=== PATIENT | female | born 1995 | race Asian ===

== ENCOUNTER 2018-05-31 00:14 | Emergency (ER) | payer OTHER ==
[~2018-05-31] VITALS: Ht 157.5 cm; Wt 99.8 kg
[2018-05-31 01:15] VITALS: BP 150/98
== END 2018-05-31 01:50 | disposition left against medical advice (07) ==
LOC: ER 00:17
DX: R07.9 Chest pain, unspecified (principal); Z53.21 Procedure and treatment not carried out due to patient leaving prior to being seen by health care provider
CPT/HCPCS: 93005

== ENCOUNTER 2021-10-15 08:41 | Emergency (ER) | payer MEDICAID, OTHER ==
[~2021-10-15] VITALS: Ht 157.5 cm; Wt 104.3 kg
[2021-10-15 09:35] VITALS: BP 145/98
[2021-10-15] MEDS ORDERED: IBUPROFEN 600 MG TAB PO ONE (10:00)
[2021-10-15] MEDS ORDERED: LIDOCAINE 1%HCL (LOCAL ANESTH) 10 ML MDV ONE (13:19)
== END 2021-10-15 13:50 | disposition home or self-care (01) ==
LOC: ER 08:41
DX: L05.91 Pilonidal cyst without abscess (principal); E03.9 Hypothyroidism, unspecified; Z90.89 Acquired absence of other organs
CPT/HCPCS: 99282; J2001